=== PATIENT | female | born 1985 | race Caucasian/White ===

== ENCOUNTER 2025-04-10 16:34 | Emergency (ER) | payer BC ==
[2025-04-10] MEDS: Sodium Chloride 0.9% 1,000 ML IV ONE ×2 (16:57→18:01)
[2025-04-10] MEDS: metroNIDAZOLE/Normal Saline 500 MG in Premix Bag 1 BAG IV ONE (16:59)
[2025-04-10] MEDS: cefTRIAXone 2 GM Vial IVPUSH ONE (16:59)
[2025-04-10 17:01] LABS: LACTIC ACID 0.7 mmol/L (0.4-2.0)
[2025-04-10 19:41] VITALS: BP 130/60; PULSE 83
== END 2025-04-10 19:40 ==
LOC: CC.ED 16:34
DX: K57.30 Diverticulosis of large intestine without perforation or abscess without bleeding (principal); J45.909 Unspecified asthma, uncomplicated; Z88.8 Allergy status to other drugs, medicaments and biological substances; Z79.899 Other long term (current) drug therapy
CPT/HCPCS: 36415; 83605; 84703; 96361; 96365; 96375; 99284; 99284-25; J0696; J1836; J7030